=== PATIENT | female | born 1995 | race Caucasian/White ===

== ENCOUNTER 2021-12-29 09:51 | Outpatient (CLI) | payer OTHER ==
[2021-12-29] MEDS ORDERED: GADOBUTROL 7.5 MMOL/7.5 ML VIAL ONE (10:10)
--- NOTE | 2021-12-29 13:26 | MRI Report ---
PROCEDURE: Brain W/WO INDICATIONS: HEADACHE CONTRAST: IV CONTRAST: Gadavist ml: 7.2 TECHNIQUE: Noncontrast axial T1 spin echo, axial T2 fast spin echo, sagittal and axial FLAIR, coronal T2 fast sp in echo, axial gradient echo, axial diffusion and ADC through the brain. After the administration of contrast, axial and coronal T1 spin echo with fat saturation through the brain. COMPARISON: None. FINDINGS: Image quality: Excellent. CSF spaces: Basal cisterns are patent. No extra-axial fluid collections. Ventricles are normal in size and shape. Brain: No midline shift. No intracranial bleeds or masses. No abnormal intracranial enhancement. There is cerebral volume loss for age. There is periventricular white matter chronic small vessel is chemic change. The brainstem appears normal. Diffusion-weighted images demonstrate no acute ischemi c insults. No chronic ischemic insults. Normal intravascular flow voids are present. Dural sinuses demonstrate normal postcontrast enhancement. Skull and face: Calvarial marrow is normal in signal. Orbits appear normal. Sinuses: Sinuses and mastoids appear clear. IMPRESSION: 1. No intracranial disease process. 2. No abnormal intracranial mass or mass effect. 3. No suspicious postcontrast enhancement. Reviewed by: Elza Guzman MD, PhD on 12/29/2021 1:24 PM PDT Approved by: Elza Guzman MD, PhD on 12/29/2021 1:24 PM PDT Station ID: [id number]
[2021-12-29] MEDS ORDERED: GADOBUTROL 7.5 MMOL/7.5 ML VIAL IVP ONE (16:13)
== END 2021-12-29 09:52 | disposition home or self-care (01) ==
LOC: DI 09:51
PROVIDERS: ATTEND Nurse Practitioner Family
DX: G43.009 Migraine without aura, not intractable, without status migrainosus (principal)
CPT/HCPCS: 70553; A9585